=== PATIENT | female | born 1980 | race Two or more races ===

== ENCOUNTER 2025-01-26 15:45 | Emergency (ER) | payer BC ==
[~2025-01-26] VITALS: Ht 165.1 cm; Wt 59.0 kg
[2025-01-26 15:55] VITALS: BP 155/100; TEMP 97.9; O2SAT 100
== END 2025-01-26 17:47 | disposition home or self-care (01) ==
LOC: ER 15:50
DX: Z00.00 Encounter for general adult medical examination without abnormal findings (principal); F19.10 Other psychoactive substance abuse, uncomplicated; R07.9 Chest pain, unspecified; R06.00 Dyspnea, unspecified
CPT/HCPCS: 71045-TC